=== PATIENT | male | born 1990 | race Caucasian/White ===

== ENCOUNTER 2022-04-20 09:30 | Outpatient (CLI) | payer OTHER, SELFPAY ==
[2022-04-20 14:38] LABS: Chloride* 100 mmol/L (96-114)
[2022-04-20 14:39] LABS: Potassium* 4.4 mmol/L (3.6-5.1); Sodium* 136 mmol/L (135-149)
[2022-04-20 14:42] LABS: Blood Urea Nitrogen* 12 mg/dL (5-24); Carbon Dioxide* 24 mmol/L (20-32); Cholesterol* 129 mg/dL (90-199); Creatinine* 0.6 mg/dL (0.5-1.5); Estimated Glomerular Filt Rate 132 ml/min; Glucose* 268 mg/dL (60-115)
[2022-04-20 14:43] LABS: Calcium* 9.2 mg/dL (8.4-10.6); HDL Cholesterol* 32 mg/dL (>=40); LDL Cholesterol Calculated 10 mg/dL (<100)
[2022-04-20 14:52] LABS: Triglycerides* 434 mg/dL (40-149)
== END 2022-04-20 09:31 | disposition home or self-care (01) ==
PROVIDERS: PCP Family Medicine; Visit Provider Family Medicine
DX: E11.9 Type 2 diabetes mellitus without complications (principal); R74.8 Abnormal levels of other serum enzymes; Z13.6 Encounter for screening for cardiovascular disorders
CPT/HCPCS: 80048; 80061

== ENCOUNTER 2022-07-22 08:36 | Outpatient (CLI) | payer OTHER, SELFPAY ==
[2022-07-22 14:07] LABS: PCR FLU A Negative PCR FLU A (Negative); PCR FLU B Negative PCR FLU B (Negative)
[2022-07-22 14:11] LABS: SARS PCR* Negative SARS-CoV-2 (Negative)
== END 2022-07-22 08:37 | disposition home or self-care (01) ==
PROVIDERS: PCP Family Medicine; Visit Provider Family Medicine
DX: Z20.822 Contact with and (suspected) exposure to COVID-19 (principal); J02.9 Acute pharyngitis, unspecified; R05.9 Cough, unspecified
CPT/HCPCS: 87631

== ENCOUNTER 2022-07-28 08:09 | Outpatient (CLI) | payer OTHER, SELFPAY ==
[2022-07-28 15:01] LABS: Creatinine Urine 108.7 mg/dL
[2022-07-28 15:05] LABS: Microalbumin Creatinine Ratio 20 mg/g (0-30); Microalbumin Urine 3 mg/dL
== END 2022-07-28 08:10 | disposition home or self-care (01) ==
LOC: FBOREF 08:09
PROVIDERS: PCP Family Medicine; Visit Provider Family Medicine
DX: E11.9 Type 2 diabetes mellitus without complications (principal); R74.8 Abnormal levels of other serum enzymes
CPT/HCPCS: 82043; 82570

== ENCOUNTER 2022-09-14 19:44 | Outpatient (CLI) | payer OTHER, SELFPAY ==
--- NOTE | 2022-09-21 11:19 | W.PM.SLEEP ---
Sleep Study Details Details Interpreting Provider: Giovanny Date of Sleep Study: 09/14/22 Sleep Study Details: STUDY TYPE:? Home ? BMI:? 37.8 ORDERING PROVIDER:? Eran INDICATION:? Concerns about sleep apnea ? SLEEP SUMMARY:? 150 monitored minutes RESPIRATORY SUMMARY:? AHI 67.6. Majority of study was done in the supine position Low oxygen 70 32.6% of study oxygen less than 90% Snoring 3% PERIODIC LIMB MOVEMENTS OF SLEEP:? Not recorded CARDIAC:? Range 62-131, mean 77.8 IMPRESSION:? Severe obstructive sleep apnea with significant hypo oxygenation. RECOMMENDATION: AutoSet CPAP at 4-17 or an in-lab titration. In-lab titration would be favored. Once effective therapy is established would recommend an overnight oximetry study. Weight loss is also recommended
== END 2022-09-14 19:45 | disposition home or self-care (01) ==
LOC: SLEEP 19:44
PROVIDERS: PCP Family Medicine; Visit Provider Family Medicine
DX: G47.33 Obstructive sleep apnea (adult) (pediatric) (principal)
CPT/HCPCS: 95806

== ENCOUNTER 2023-02-04 07:48 | Outpatient (CLI) | payer OTHER, SELFPAY ==
--- NOTE | 2023-02-04 08:00 | CRLHL7_ITS ---
For Patients: As a result of the Century Cures Act, medical imaging exams and procedure reports are released immediately into your electronic medical record. You may view this report before your referring provider. If you have questions, please contact your health care provider. Indication: NASAL CONGESTION Technique: Performed without IV contrast Comparison: None available Findings: Frontal sinuses: Clear. Ethmoid sinuses: Clear. Maxillary sinuses: Mucosal thickening within the inferior right frontal sinus noted, mild. The maxillary sinus drainage pathways are patent on both sides. Sphenoid sinuses: Clear, including both sphenoethmoidal recesses. Nasal Cavity: Nasal septum is midline. No molina bullosa. Hypertrophy of the left nasal turbinates mucosa. No TMJ abnormalities identified. The visualized portions of the orbits, intracranial contents and upper soft tissue neck are grossly negative. Impression: 1. Mild right maxillary sinus disease. Sinus drainage pathways are clear. 2. Midline nasal septum. No polyps. Please note that all CT scans at this facility use dose modulation, iterative reconstruction, and/or weight-based dosing when appropriate to reduce radiation dose to as low as reasonably achievable. Dictated by Miguel Lopez MD @ 02/04/2023 10:08:30 AM (Electronically Signed)
== END 2023-02-04 07:49 | disposition home or self-care (01) ==
LOC: CT 07:49
PROVIDERS: PCP Family Medicine; Visit Provider Family Medicine
DX: R09.81 Nasal congestion (principal); J32.0 Chronic maxillary sinusitis; J34.2 Deviated nasal septum
CPT/HCPCS: 70486

== ENCOUNTER 2023-05-02 09:45 | Outpatient (CLI) | payer OTHER, SELFPAY | END 2023-05-02 09:46 | disposition home or self-care (01) | LOC: FBOREF 09:46 | PROVIDERS: PCP Family Medicine; Visit Provider Family Medicine | DX: E11.9 Type 2 diabetes mellitus without complications (principal); R74.8 Abnormal levels of other serum enzymes; E66.09 Other obesity due to excess calories; Z13.6 Encounter for screening for cardiovascular disorders | CPT/HCPCS: 80048; 80061 ==

== ENCOUNTER 2023-09-09 08:12 | Outpatient (CLI) | payer OTHER, SELFPAY | END 2023-09-09 08:13 | disposition home or self-care (01) | LOC: KYNREF 08:12 | PROVIDERS: PCP Family Medicine; Visit Provider Nurse Practitioner Family | DX: Z00.00 Encounter for general adult medical examination without abnormal findings (principal); Z13.6 Encounter for screening for cardiovascular disorders | CPT/HCPCS: 80061 ==

== ENCOUNTER 2024-09-11 16:03 | Outpatient (CLI) | payer OTHER, SELFPAY | END 2024-09-11 16:04 | disposition home or self-care (01) | LOC: FBOREF 16:05 | PROVIDERS: PCP Family Medicine; Visit Provider Family Medicine | DX: Z13.9 Encounter for screening, unspecified (principal); Z13.6 Encounter for screening for cardiovascular disorders | CPT/HCPCS: 80048; 80061 ==